=== PATIENT | male | born 1970 | race Caucasian/White ===

== ENCOUNTER → 2019-04-16 | Outpatient (CLI) | payer BC ==
[~2019-04-16] MED LIST: DESYREL 50MG50 MG PO; LEXAPRO20 MG PO
== END ==
LOC: COL.PUL 04-08 11:20
DX: R06.09 Other forms of dyspnea (principal)

== ENCOUNTER → 2020-06-17 | Outpatient (CLI) | payer BC | LOC: COL.RAD 10:33 | DX: Z87.09 Personal history of other diseases of the respiratory system (principal); Z90.89 Acquired absence of other organs; Z87.891 Personal history of nicotine dependence ==

== ENCOUNTER → 2020-07-08 | Outpatient (CLI) | payer BC | LOC: COL.RAD 07:29 | DX: E04.1 Nontoxic single thyroid nodule (principal); Z90.89 Acquired absence of other organs; Z85.850 Personal history of malignant neoplasm of thyroid ==

== ENCOUNTER → 2020-11-25 | Outpatient (CLI) | payer BC | LOC: COL.VAS 13:25 | DX: R06.02 Shortness of breath (principal) ==

== ENCOUNTER → 2021-04-18 | Outpatient (CLI) | payer BC | LOC: COL.PUL 11:38 | DX: R06.02 Shortness of breath (principal) | CPT/HCPCS: J7674 ==

== ENCOUNTER → 2023-07-03 | Outpatient (CLI) | payer BC | LOC: COL.RAD 12:27 | DX: Z12.2 Encounter for screening for malignant neoplasm of respiratory organs (principal); F17.210 Nicotine dependence, cigarettes, uncomplicated ==